=== PATIENT | male | born 1970 | race African-American/Black ===

== ENCOUNTER 2019-07-26 20:24 | Emergency (ER) | payer SELFPAY ==
[~2019-07-26] VITALS: Ht 170.2 cm; Wt 95.3 kg
[2019-07-26] MEDS ORDERED: ACETAMINOPHEN/CODEINE ELIX 120-12 MG/5 ML UDC PO ONE (21:00)
[2019-07-26] MEDS ORDERED: IPRATROPIUM BROMIDE 0.02% 2.5 ML NEB NEB STA (21:00)
[2019-07-26] MEDS ORDERED: ALBUTEROL SULF 0.083% NEB SOLN 3 ML NEB NEB STA (21:00)
[2019-07-26] MEDS ORDERED: DEXAMETHASONE SOD PHOS 10 MG/1 ML VIAL INH ONE (21:00)
[2019-07-26] MEDS ORDERED: DEXAMETHASONE SOD PHOS 10 MG/1 ML VIAL ONE (21:10)
--- NOTE | 2019-07-26 21:35 | Diagnostic Imaging Report ---
EXAMINATION: CHEST 2 VIEWS INDICATION: Cough, short of breath. COMPARISON: None FINDINGS: TUBES and LINES: None. LUNGS: Normal lung volumes. Mild central bronchial wall thickening. No consolidations. PLEURA: No pleural effusion or pneumothorax. HEART AND MEDIASTINUM: The cardiomediastinal silhouette is unremarkable. BONES AND SOFT TISSUES: No acute osseous lesion. Soft tissues are unremarkable. UPPER ABDOMEN: No free air under the diaphragm. IMPRESSION: Findings of bronchitis. Signed by: Ishmael Hurt DO on 07/26/2019 9:33 PM
[2019-07-26 22:08] LABS: INFLUENZAE A&B ANTIGEN (RAPID) NEGATIVE (NEGATIVE); STREPTOCOCCUS GRP A ANTIGEN NEGATIVE (NEGATIVE)
== END 2019-07-26 22:29 | disposition home or self-care (01) ==
LOC: ER 20:24
DX: R05 Cough (principal); J20.9 Acute bronchitis, unspecified
CPT/HCPCS: 71046; 83518; 87070; 87400; 94640; 99283; J1100